=== PATIENT | female | born 1950 | race Caucasian/White ===

== ENCOUNTER → 2020-02-11 | Outpatient (CLI) | payer MEDICARE ==
[~2020-02-11] MED LIST: ASP325T PO; ASP81CT PO; AZIT-21 PO; CALC-656 PO; CARV3.122 PO; CLOP75TA PO; CYCL10TA9 PO; DIGO250T96 PO; DNPZ10T PO; ENAL2.5T PO; FAMO20TA13 PO; FELO5TAB2 PO; FERR-57 PO; FLC1T PO; FOLI1TAB PO; FRSM40T PO; FURO80TA PO; GADOBUTROL 10 MMOL/10 ML (GADAVIST) VIAL IV ONE; GBPN400C PO; GLIP5TAB13 PO; HYDR1TAB PO; INSU100I14 SQ; INSU100I16 SQ; LSNP20T PO; MEMA10TA PO; MGS40T PO; MTP100TCR PO; OMG1KC PO; PNT40TEC PO; POTA10CA43 PO; RAME8T PO; SMV20T PO; TRAM50TA2 PO; WRF2T PO; WRF3T PO
--- NOTE | 2020-02-11 12:20 | Diagnostic Imaging Report ---
CLINICAL INDICATION: Patient with dizziness, headaches and decreased vision. EXAM: MRI of the brain/orbits performed without and with 10 mL of Gadavist IV contrast. Sequences include axial DWI, ADC map, axial T2, axial FLAIR, axial T1, axial gradient echo, coronal T2 thin fat sat, axial T1 thin, coronal T1 thin, axial T2 thin, axial T1 fat-sat thin postcontrast, coronal T1 fat-sat thin postcontrast, right and left sagittal T1 fat-sat postcontrast images of the orbits, axial T1 post IV contrast whole brain, coronal T1 fat-sat post IV contrast whole brain, sagittal T1 post IV contrast whole brain. COMPARISON: None. FINDINGS: There is no evidence of acute cerebral infarct, intracranial hemorrhage, or gross mass effect. There is no abnormal IV contrast enhancement. The brain parenchymal volume appears appropriate for patient's age. There are multiple focal, patchy and mildly confluent areas of high T2 signal white matter changes seen throughout both cerebral hemispheres, likely representing chronic small vessel ischemic disease and leukoaraiosis. There is normal wynn-white matter distinction. There is no significant midline shift or herniation. The [place] vascular structures show no gross abnormality as visualized. The infundibulum is deviated towards the left. There is partial empty sella turcica is noted. There is CSF signal intensity fluid within the right and midportion of the sella which may possibly represent an arachnoid cyst. This area measures roughly 1.1 cm x 1.4 cm in AP by transverse dimensions.. There is no evidence of hydrocephalus. The basal cisterns are unremarkable. The skull and extracranial soft tissue are unremarkable. There is minimal mucosal thickening involving ethmoid sinus. Temporal bones show no significant abnormality. The orbits and globes are unremarkable. There is no abnormal IV contrast enhancement. Optic nerves, optic tracts, and optic chiasm are unremarkable. IMPRESSION: 1: There is no evidence of acute intracranial process. There is no abnormal IV contrast enhancement. 2: The orbits and globes are unremarkable. The visualized portions of optic nerves, optic tracts, and chiasm are unremarkable. 3: Partially empty sella turcica is noted with CSF signal intensity fluid-filled area in the mid and right side of the sella with leftward deviation of the infundibulum. Arachnoid cyst may be considered. There is no encroachment of the region of the optic nerves. 4: There are age-related brain parenchymal changes with chronic small vessel ischemic disease and leukoaraiosis. Dictated by: Dictated on workstation # [id number]
== END ==
LOC: RAD 09:58
PROVIDERS: ATTEND Neurological Surgery
DX: I67.82 Cerebral ischemia (principal); I67.81 Acute cerebrovascular insufficiency; H53.8 Other visual disturbances; G62.9 Polyneuropathy, unspecified
CPT/HCPCS: 70553

== ENCOUNTER 2021-02-09 11:43 | Inpatient (IN) | payer MEDICARE ==
[~2021-02-09] VITALS: Ht 163 cm; Wt 99.3 kg
[~2021-02-09 11:43] MED LIST changes: -GADOBUTROL 10 MMOL/10 ML (GADAVIST) VIAL IV ONE
[2021-02-09] MEDS ORDERED: ONDANSETRON 4 MG/2 ML (SDV) Z0FRAN ONE (12:00)
[2021-02-09] MEDS ORDERED: ONDANSETRON 4 MG/2 ML (SDV) Z0FRAN IVP ONE (12:30)
[2021-02-09] MEDS ORDERED: LACTATED RINGERS 1,000 ML IV ONE (12:30)
[2021-02-09 12:42] LABS: ALBUMIN 3.6 GM/DL (3.2-4.5); POTASSIUM 3.3 MMOL/L (3.6-5.0)
[2021-02-09 12:43] LABS: CALCIUM 8.4 MG/DL (8.5-10.1)
[2021-02-09 12:45] LABS: BASOPHILS % (AUTO) 0 % (0-10); EOSINOPHILS % (AUTO) 0 % (0-10); MEAN CORPUSCULAR HEMOGLOBIN 30 pg (25-34); MEAN PLATELET VOLUME 10.3 fL (9.0-12.2)
[2021-02-09 12:46] LABS: BILIRUBIN,TOTAL 0.6 MG/DL (0.1-1.0); HEMATOCRIT 41 % (35-52); HEMOGLOBIN 13.8 g/dL (11.5-16.0); LYMPHOCYTES # (AUTO) 0.7 10^3/uL (1.0-4.0); LYMPHOCYTES % (AUTO) 16 % (12-44); MEAN CORPUSCULAR HGB CONC 34 g/dL (32-36); MEAN CORPUSCULAR VOLUME 88 fL (80-99); MONOCYTES # (AUTO) 0.2 10^3/uL (0.0-1.0); MONOCYTES % (AUTO) 4 % (0-12); NEUTROPHILS # (AUTO) 3.4 10^3/uL (1.8-7.8); NEUTROPHILS % (AUTO) 80 % (42-75); PLATELET COUNT 121 10^3/uL (130-400); WHITE BLOOD COUNT 4.3 10^3/uL (4.3-11.0)
[2021-02-09 12:48] LABS: CREATININE SERUM 0.72 MG/DL (0.60-1.30)
[2021-02-09 12:52] LABS: SMEAR SCAN COMMENT YES
[2021-02-09 12:53] LABS: FIBRIN DEGRADATION PRODUCTS 1.05 UG/ML (0.00-0.49); PROTHROMBIN TIME PATIENT 13.5 SEC (12.2-14.7)
--- NOTE | 2021-02-09 13:11 | Diagnostic Imaging Report ---
CLINICAL INDICATION: Patient complains of being COVID positive. Patient tested positive yesterday but symptoms started 10 days ago. EXAM: Portable chest x-ray upright view. COMPARISON: Chest x-ray dated 02/15/2011. FINDINGS: There are curvilinear opacities and amorphous airspace opacities involving the left midlung field and bibasilar regions concerning for lung infiltrates. There is no pleural effusion or pneumothorax. Pulmonary vasculature and cardiac silhouette are within normal limits. There are degenerative spurs involving the spine. IMPRESSION: There are bilateral lung infiltrates concerning for pneumonia. Dictated by: Dictated on workstation # [id number]
[2021-02-09] MEDS ORDERED: IOHEXOL 350 MG/ML 100 ML (OMNIPAQUE 350) VIAL IV ONE (14:30)
[2021-02-09] MEDS ORDERED: HOLD METFORMIN - RECEIVED CONTRAST 20 ML VIAL IV SCH (14:30)
[2021-02-09] MEDS ORDERED: NS 100 ML (IVPB) BAG IV ONE (14:30)
[2021-02-09 14:35] LABS: BILIRUBIN,URINE NEGATIVE (NEGATIVE); CLARITY,URINE CLEAR; COLOR,URINE YELLOW; GLUCOSE, URINE (UA) 2+ (NEGATIVE); KETONES,URINE 3+ (NEGATIVE); LEUKOCYTE ESTERASE ,URINE NEGATIVE (NEGATIVE); NITRITE,URINE NEGATIVE (NEGATIVE); PROTEIN,URINE 2+ (NEGATIVE)
[2021-02-09 14:43] LABS: BACTERIA,URINE TRACE /HPF; WBC,URINE 0-2 /HPF
--- NOTE | 2021-02-09 15:04 | Diagnostic Imaging Report ---
PROCEDURE: CT angiography of the chest with contrast. TECHNIQUE: Multiple contiguous axial images were obtained through the chest after uneventful bolus administration of intravenous contrast. 3D reconstructed CTA MIP acquisitions were also performed. Auto Exposure Controls were utilized during the CT exam to meet ALARA standards for radiation dose reduction. INDICATION: COVID patient; nausea, vomiting, and weakness. FINDINGS: There are no pulmonary arterial filling defects. There are no findings of pulmonary arterial embolus. The thoracic aorta is patent, nonaneurysmal, and nonacute. This patient has multifocal bilateral upper greater than lower lobe scattered ground-glass densities in keeping with the provided history of known COVID. In addition, there are some subpleural zones of partial atelectasis. No pathological-appearing thoracic lymph nodes. The aorta is patent and nonaneurysmal. No acute chest wall pathology. The visualized upper abdomen is nonacute. IMPRESSION: Negative for PE; however, extensive multifocal ground-glass infiltrates are most compatible with pulmonary involvement by COVID given the provided history. Dictated by: Dictated on workstation # [id number]
--- NOTE | 2021-02-09 16:49 | ED General ---
General Chief Complaint: COVID19 Suspect/Confirmed Stated Complaint: HYPOVOLEMIA, HYPOXIA, PNEUMONIA DUE TO COVID-19 Nursing Triage Note: PT TO RM 9 BY WHEELCHAIR WITH COMPLAINT OF COVID +. STATES TESTED POSITIVE YESTERDAY, BUT SYMPTOMS STARTED 10 DAYS AGO. N/V, WEAKNESS. Source of Information: Patient, Old Records Exam Limitations: No Limitations History of Present Illness Date Seen by Provider: Feb 09, 2021 Time Seen by Provider: 12:00 Initial Comments This is 71-year-old woman presents to the emergency room with hypoxia after being diagnosed with COVID-19 yesterday. She has been ill for about 10 days. She was going to the drive-through follow-up at [facility] today when she was noted to have hypoxia with 88% on room air. She was directed to the ER. She has not been vaccinated. She also has some risk factors including age, weight, and insulin-dependent type 2 diabetes. She has not yet received any treatments for COVID-19. She has also been struggling with nausea, vomiting, and diarrhea. She feels rather weak. Allergies and Home Medications Allergies Coded Allergies: codeine (Verified Allergy, Unknown, 02/15/11) Patient Home Medication List Home Medication List Reviewed: Yes Aspirin (Aspirin 325 Mg Tab) 325 Mg Tab, 325 MG PO DAILY, (Reported) Entered as Reported by: GEORGE JOE on 02/17/11 1109 Carvedilol (Carvedilol) 3.125 Mg Tablet, 3.125 MG PO BID, (Reported) Entered as Reported by: GEORGE JOE on 02/17/11 1115 Cyclobenzaprine Hcl (Cyclobenzaprine Hcl) 10 Mg Tablet, 1 EACH PO Q8HR PRN Prescribed by: FITO MICHELLE on 03/20/11 1605 Digoxin (Lanoxin 0.25 Mg) 0.25 Mg Tab, 1 EACH PO DAILY, (Reported) Entered as Reported by: TRENT GONZALEZ on 03/20/11 1213 Enalapril Maleate (Enalapril Maleate) 2.5 Mg Tablet, 2.5 MG PO BID, (Reported) Entered as Reported by: GEORGE JOE on 02/17/11 1115 Furosemide (Lasix Tab) 40 Mg Tab, 40 MG PO DAILY, (Reported) Entered as Reported by: GEORGE JOE on 02/17/11 1115 Gabapentin (Neurontin) 400 Mg Cap, 400 MG PO Q4H, (Reported) Entered as Reported by: RUSLAN SADLER on 02/06/11 140 Insulin Aspart (Novolog Pen) 100 Unit/1 Ml Insuln.pen, 15 UNIT SQ TID, (Reported) Entered as Reported by: RUSLAN SADLER on 02/06/11 140 Insulin Detemir (Levemir) 100 Unit/1 Ml Insuln.pen, 28 UNIT SQ HS, (Reported) Entered as Reported by: RUSLAN SADLER on 02/06/11 140 [place] 3 Polyunsat Fatty Acids (Fish Oil) 1,000 Mg Cap, 3,000 MG PO DAILY, (Reported) Entered as Reported by: RUSLAN SADLER on 02/06/11 140 Pantoprazole Sod (Protonix Tab) 40 Mg Tab, 40 MG PO DAILY, (Reported) Entered as Reported by: GEORGE JOE on 02/17/11 111 Potassium Chloride (Potassium Chloride) 10 Meq Capsule.sa, 10 MEQ PO DAILY, (Reported) Entered as Reported by: GEORGE JOE on 02/17/11 111 Tramadol Hcl (Tramadol Hcl) 50 Mg Tablet, 100 MG PO, (Reported) Entered as Reported by: RUSLAN SADLER on 02/06/11 140 Warfarin Sod (Coumadin 3 Mg) 3 Mg Tab, 3 MG PO, (Reported) Entered as Reported by: TRENT GONZALEZ on 03/20/11 1213 Warfarin Sod (Coumadin 2 Mg) 2 Mg Tab, 2 MG PO DAILY@1800, (Reported) Entered as Reported by: TRENT GONZALEZ on 03/20/11 1213 Review of Systems Review of Systems Constitutional: see HPI EENTM: no symptoms reported Respiratory: see HPI Cardiovascular: no symptoms reported Gastrointestinal: see HPI Genitourinary: no symptoms reported : No Musculoskeletal: no symptoms reported Skin: no symptoms reported Psychiatric/Neurological: No Symptoms Reported Hematologic/Lymphatic: No Symptoms Reported Immunological/Allergic: no symptoms reported Past Zxawqtp-Qsljvf-Cmcmoq Hx Patient Social History Tobacco Use?: No Substance use?: No Alcohol Use?: No Past Medical History Surgeries: Yes Cardiac (Heart cath with renal stent placement), Hysterectomy, Vascular Surgery (Right renal artery stent) Respiratory: Yes Pneumonia Cardiac: Yes (Cardiomyopathy with congestive heart failure, cardiac thrombus) High Cholesterol, Hypertension, Peripheral Vascular (Renal artery stenosis) Neurological: Yes Neuropathy : No Reproductive Disorders: Yes Genitourinary: Yes Kidney Stones Gastrointestinal: No Musculoskeletal: No Endocrine: Yes Diabetes, Insulin dep HEENT: No Cancer: No Psychosocial: No Integumentary: No Physical Exam-Suspected Sepsis Physical Exam Vital Signs Vital Signs - First Documented 02/09/21 11:43 Temp 37.8 Pulse 103 Resp 26 Pulse Ox 90 O2 Delivery Room Air Capillary Refill : Less Than 3 Seconds Height, Weight, BMI Height: '" Weight: lbs. oz. kg; 34.00 BMI Method:Stated General Appearance: No Apparent Distress, WD/WN, Obese HEENT: PERRL/EOMI, Normal ENT Inspection, Other (Oropharynx somewhat dry) Neck: Normal Inspection; No JVD Respiratory: Lungs Clear, Normal Breath Sounds, No Accessory Muscle Use, No Respiratory Distress Cardiovascular: Regular Rate, Rhythm, No Edema, No Murmur Gastrointestinal: Normal Bowel Sounds, Non Tender, Soft Extremity: Normal Inspection, No Pedal Edema Neurologic/Psychiatric: Alert, Oriented x3, No Motor/Sensory Deficits, Normal Mood/Affect, data warehouse specialist II-XII Norm as Tested Skin: normal color, warm/dry Focused Exam Lactate Level 02/09/21 11:50: Lactic Acid Level 1.23 Progress/Results/Core Measures Suspected Sepsis SIRS Temperature: Pulse: 103 Respiratory Rate: 26 Laboratory Tests 02/09/21 11:50: White Blood Count 4.3 Blood Pressure / Mean: 02/09/21 11:50: Lactic Acid Level 1.23 Laboratory Tests 02/09/21 11:50: Creatinine 0.72, INR Comment 1.0, Platelet Count 121L, Total Bilirubin 0.6 Results/Orders Lab Results Laboratory Tests Test 02/09/21 11:50 02/09/21 14:27 Range/Units White Blood Count 4.3 4.3-11.0 10^3/uL Red Blood Count 4.63 3.80-5.11 10^6/uL Hemoglobin 13.8 11.5-16.0 g/dL Hematocrit 41 35-52 % Mean Corpuscular Volume 88 80-99 fL Mean Corpuscular Hemoglobin 30 25-34 pg Mean Corpuscular Hemoglobin Concent 34 32-36 g/dL Red Cell Distribution Width 13.0 10.0-14.5 % Platelet Count 121 L 130-400 10^3/uL Mean Platelet Volume 10.3 9.0-12.2 fL Immature Granulocyte % (Auto) 1 % Neutrophils (%) (Auto) 80 H 42-75 % Lymphocytes (%) (Auto) 16 12-44 % Monocytes (%) (Auto) 4 0-12 % Eosinophils (%) (Auto) 0 0-10 % Basophils (%) (Auto) 0 0-10 % Neutrophils # (Auto) 3.4 1.8-7.8 10^3/uL Lymphocytes # (Auto) 0.7 L 1.0-4.0 10^3/uL Monocytes # (Auto) 0.2 0.0-1.0 10^3/uL Eosinophils # (Auto) 0.0 0.0-0.3 10^3/uL Basophils # (Auto) 0.0 0.0-0.1 10^3/uL Immature Granulocyte # (Auto) 0.0 0.0-0.1 10^3/uL Percent Immature Platelet Fraction 4.6 0.0-7.6 % Prothrombin Time 13.5 12.2-14.7 SEC INR Comment 1.0 0.8-1.4 Activated Partial Thromboplast Time 41 H 24-35 SEC D-Dimer 1.05 H 0.00-0.49 UG/ML Sodium Level 138 135-145 MMOL/L Potassium Level 3.3 L 3.6-5.0 MMOL/L Chloride Level 101 98-107 MMOL/L Carbon Dioxide Level 23 21-32 MMOL/L Anion Gap 14 5-14 MMOL/L Blood Urea Nitrogen 13 7-18 MG/DL Creatinine 0.72 0.60-1.30 MG/DL Estimat Glomerular Filtration Rate 80 BUN/Creatinine Ratio 18 Glucose Level 317 H 70-105 MG/DL Lactic Acid Level 1.23 0.50-2.00 MMOL/L Calcium Level 8.4 L 8.5-10.1 MG/DL Corrected Calcium 8.7 8.5-10.1 MG/DL Total Bilirubin 0.6 0.1-1.0 MG/DL Aspartate Amino Transf (AST/SGOT) 89 H 5-34 U/L Alanine Aminotransferase (ALT/SGPT) 48 0-55 U/L Alkaline Phosphatase 68 40-136 U/L C-Reactive Protein High Sensitivity 11.02 H 0.00-0.50 MG/DL Total Protein 7.0 6.4-8.2 GM/DL Albumin 3.6 3.2-4.5 GM/DL Procalcitonin 0.31 H <0.10 NG/ML Smear Scan YES Urine Color YELLOW Urine Clarity CLEAR Urine pH 6.0 5-9 Urine Specific [place] 1.025 H 1.016-1.022 Urine Protein 2+ H NEGATIVE Urine Glucose (UA) 2+ H NEGATIVE Urine Ketones 3+ H NEGATIVE Urine Nitrite NEGATIVE NEGATIVE Urine Bilirubin NEGATIVE NEGATIVE Urine Urobilinogen 0.2 < = 1.0 MG/DL Urine Leukocyte Esterase NEGATIVE NEGATIVE Urine RBC (Auto) NEGATIVE NEGATIVE Urine RBC NONE /HPF Urine WBC 0-2 /HPF Urine Squamous Epithelial Cells 5-10 /HPF Urine Crystals NONE /LPF Urine Bacteria TRACE /HPF Urine Casts NONE /LPF Urine Mucus NEGATIVE /LPF Urine Culture Indicated NO My Orders Orders - ALLY HUBBARD MD Dexamethasone Injection (Decadron Inje (02/09/21 12:00) Ondansetron Injection (Zofran Injectio (02/09/21 12:00) Ondansetron Injection (Zofran Injectio (02/09/21 12:30) Dexamethasone Injection (Decadron Inje (02/09/21 12:30) Fibrin Degradation Products (02/09/21 12:28) Procalcitonin (Pct) (02/09/21 12:28) Hs C Reactive Protein (02/09/21 12:28) Cbc With Automated Diff (02/09/21 12:28) Comprehensive Metabolic Panel (02/09/21 12:28) Blood Culture (02/09/21 12:28) Sputum Culture (02/09/21 12:28) Urinalysis (02/09/21 12:28) Urine Culture (02/09/21 12:28) Protime With Inr (02/09/21 12:28) Partial Thromboplastin Time (02/09/21 12:28) Chest 1 View, Ap/Pa Only (02/09/21 12:28) Ed Iv/Invasive Line Start (02/09/21 12:28) Ed Iv/Invasive Line Start (02/09/21 12:28) Vital Signs Adult Sepsis Patie Q15M (02/09/21 12:28) O2 (02/09/21 12:28) Remove Rings In Anticipation O (02/09/21 12:28) Lactic Acid Analyzer (02/09/21 12:28) Lactated Ringers (Lr 1000 Ml Iv Solution (02/09/21 12:30) Ct Angio Chest W (02/09/21 14:06) Iohexol Injection (Omnipaque 350 Mg/Ml 1 (02/09/21 14:30) Received Contrast (Hold Metformin- Contr (02/09/21 14:30) Ns (Ivpb) (Sodium Chloride 0.9% Ivpb Bag (02/09/21 14:30) Ed Admission (Communication) (02/09/21 16:19) Medications Given in ED Current Medications Medications Dose Ordered Sig/[place] Route Start Time Stop Time Status Last Admin Dose Admin Dexamethasone Sodium Phosphate 10 mg STK-MED ONCE .ROUTE 02/09/21 12:00 02/09/21 12:02 DC 02/09/21 12:04 6 MG Iohexol 100 ml ONCE ONCE IV 02/09/21 14:30 02/09/21 14:31 DC 02/09/21 14:29 77 ML Lactated Ringer's 1,000 ml @ 0 mls/hr Q0M ONCE IV 02/09/21 12:30 02/09/21 12:32 DC 02/09/21 13:27 0 MLS/HR Ondansetron HCl 4 mg STK-MED ONCE .ROUTE 02/09/21 12:00 02/09/21 12:02 DC 02/09/21 12:04 8 MG Sodium Chloride 100 ml ONCE ONCE IV 02/09/21 14:30 02/09/21 14:31 DC 02/09/21 14:29 80 ML Vital Signs/I&O 02/09/21 11:43 Temp 37.8 Pulse 103 Resp 26 B/P (MAP) Pulse Ox 90 O2 Delivery Room Air Capillary Refill : Less Than 3 Seconds Progress Note : Time: 16:50 Progress Note Patient was hypoxic requiring nasal cannula oxygen support. He was treated with IV fluids and dexamethasone. D-dimer was elevated prompting further evaluation with CT angiogram. Infiltrates were noted without pulmonary embolus. Patient is being admitted due to her hypoxia and risk factors including age, being overweight, and insulin requiring diabetes. I discussed CODE STATUS with the patient. She is okay with CPR and cardiac resuscitation but she does not want to be intubated. I explained the intricacies of this request and if she maintains her position. I also asked for clarification on how she uses her insulin. She reports using 20 units of NovoLog and 20 units of Levemir at at bedtime only. Diagnostic Imaging Diagonstic Imaging: Xray Plain Films/CT/US/NM/MRI: chest Comments NAME: KATIUSKA CUELLAR MED REC#: [id number] PT STATUS: REG ER : 1950 PHYSICIAN: ALLY HUBBARD MD ADMIT DATE: 02/09/21/ER Draft Date of Exam:02/09/21 CHEST 1 VIEW, AP/PA ONLY CLINICAL INDICATION: Patient complains of being COVID positive. Patient tested positive yesterday but symptoms started 10 days ago. EXAM: Portable chest x-ray upright view. COMPARISON: Chest x-ray dated 02/15/2011. FINDINGS: There are curvilinear opacities and amorphous airspace opacities involving the left midlung field and bibasilar regions concerning for lung infiltrates. There is no pleural effusion or pneumothorax. Pulmonary vasculature and cardiac silhouette are within normal limits. There are degenerative spurs involving the spine. IMPRESSION: There are bilateral lung infiltrates concerning for pneumonia. Dictated on workstation # [id number] Dict: 02/09/21 1301 Trans: 02/09/21 1310 [id number] Interpreted by: LENNY TAY MD Reviewed: Reviewed by Me Diagonstic Imaging: CT Plain Films/CT/US/NM/MRI: chest Comments NAME: KATIUSKA CUELLAR MED REC#: [id number] PT STATUS: REG ER : 1950 PHYSICIAN: ALLY HUBBARD MD ADMIT DATE: 02/09/21/ER Signed Date of Exam:02/09/21 CT ANGIO CHEST W PROCEDURE: CT angiography of the chest with contrast. TECHNIQUE: Multiple contiguous axial images were obtained through the chest after uneventful bolus administration of intravenous contrast. 3D reconstructed CTA MIP acquisitions were also performed. Auto Exposure Controls were utilized during the CT exam to meet ALARA standards for radiation dose reduction. INDICATION: COVID patient; nausea, vomiting, and weakness. FINDINGS: There are no pulmonary arterial filling defects. There are no findings of pulmonary arterial embolus. The thoracic aorta is patent, nonaneurysmal, and nonacute. This patient has multifocal bilateral upper greater than lower lobe scattered ground-glass densities in keeping with the provided history of known COVID. In addition, there are some subpleural zones of partial atelectasis. No pathological-appearing thoracic lymph nodes. The aorta is patent and nonaneurysmal. No acute chest wall pathology. The visualized upper abdomen is nonacute. IMPRESSION: Negative for PE; however, extensive multifocal ground-glass infiltrates are most compatible with pulmonary involvement by COVID given the provided history. Dictated by: Dictated on workstation # [id number] Dict: 02/09/21 1440 Trans: 02/09/21 1548 [id number] Interpreted by: ABE LIRIANO Electronically signed by: ABE LIRIANO 02/09/21 1548 Reviewed: Reviewed by Dc Departure Communication (Admissions) Time/Spoke to Admitting Phy: 16:15 Dr. Chatman Impression Primary Impression: Pneumonia due to COVID-19 virus Additional Impressions: Hypoxia Hyperglycemia Nausea vomiting and diarrhea Disposition: ADMITTED INPATIENT Condition: Improved Admissions Decision to Admit Reason: Admit from ER (General) Decision to Admit/Date: Feb 09, 2021 Time/Decision to Admit Time: 12:05 Departure-Patient Inst. Referrals: [facility] (PCP/Family) Primary Care Physician ALLY HUBBARD MD Feb 09, 2021 16:49
[2021-02-09] MEDS ORDERED: AZITHROMYCIN INJECTION 500 MG in NS (IVPB) 250 ML IV NR (17:45)
[2021-02-09] MEDS ORDERED: polyethylene glycoL POWDER 17 GM (MIRALAX) PACK PO PRN (17:45)
[2021-02-09] MEDS ORDERED: guaiFENesin/DM (ROBITUSSIN DM) 10 ML UDC PO PRN (17:45)
[2021-02-09] MEDS ORDERED: ANTACID SUSP 30 ML UDC (MYLANTA) PO PRN (17:45)
[2021-02-09] MEDS ORDERED: ACETAMINOPHEN 325 MG TABLET PO PRN (17:45)
[2021-02-09] MEDS ORDERED: ONDANSETRON 4 MG/2 ML (SDV) Z0FRAN IV PRN (17:45)
[2021-02-09] MEDS ORDERED: MELATONIN 3 MG TABLET PO PRN (17:45)
[2021-02-09] MEDS ORDERED: ONDANSETRON 4 MG (ZOFRAN) ORAL DISSOLVE TAB PO PRN (17:45)
[2021-02-09] MEDS ORDERED: ALPRAZolam 0.25 MG (XANAX) TAB PO PRN (17:45)
[2021-02-09] MEDS ORDERED: diphenhydrAMINE 25 MG TAB (BENADRYL) PO PRN (17:45)
[2021-02-09] MEDS: cefTRIAXone 2,000 MG in NS (IVPB) 50 ML IV SCH (18:02)
[2021-02-09] MEDS: ENOXAPARIN 40 MG/0.4 ML (LOVENOX) SYR SC SCH (18:03)
[2021-02-09 18:11] VITALS: BP 163/91
[2021-02-09 19:14] VITALS: BP 163/84
[2021-02-09] MEDS ORDERED: RT-ALBUTEROL HFA 8.5 GM INHALER IH PRN (19:45)
[2021-02-09] MEDS: RT-ALBUTEROL HFA 8.5 GM INHALER IH SCH (21:37)
[2021-02-09] MEDS: inSUlin ASPART (NovoLOG) 1 UNIT/0.01 ML (CHARGE PER UNIT) SC SCH (21:41)
[2021-02-09 23:34] VITALS: BP 160/75
[2021-02-10] MEDS: RT-ALBUTEROL HFA 8.5 GM INHALER IH SCH ×4 (02:47→23:26)
[2021-02-10 04:56] VITALS: BP 160/87
[2021-02-10] MEDS: dexAMETHasone 6 MG TAB (DECADRON) PO SCH (05:47)
[2021-02-10] MEDS: inSUlin ASPART (NovoLOG) 1 UNIT/0.01 ML (CHARGE PER UNIT) SC SCH ×6 (05:48→20:25)
[2021-02-10 06:32] LABS: BASOPHILS % (AUTO) 0 % (0-10); EOSINOPHILS % (AUTO) 0 % (0-10); HEMATOCRIT 38 % (35-52); LYMPHOCYTES # (AUTO) 0.6 10^3/uL (1.0-4.0); LYMPHOCYTES % (AUTO) 19 % (12-44); MEAN CORPUSCULAR HEMOGLOBIN 29 pg (25-34); MEAN CORPUSCULAR HGB CONC 34 g/dL (32-36); MEAN CORPUSCULAR VOLUME 86 fL (80-99); MONOCYTES # (AUTO) 0.3 10^3/uL (0.0-1.0); MONOCYTES % (AUTO) 9 % (0-12); NEUTROPHILS # (AUTO) 2.4 10^3/uL (1.8-7.8); NEUTROPHILS % (AUTO) 72 % (42-75); PLATELET COUNT 151 10^3/uL (130-400); WHITE BLOOD COUNT 3.3 10^3/uL (4.3-11.0)
[2021-02-10 06:55] LABS: ALBUMIN 3.4 GM/DL (3.2-4.5); BILIRUBIN,TOTAL 0.5 MG/DL (0.1-1.0); CALCIUM 8.6 MG/DL (8.5-10.1); CREATININE SERUM 0.73 MG/DL (0.60-1.30); MAGNESIUM 2.1 MG/DL (1.6-2.4); POTASSIUM 3.2 MMOL/L (3.6-5.0); TOTAL PROTEIN 6.8 GM/DL (6.4-8.2)
[2021-02-10] MEDS ORDERED: inSUlin ASPART (NovoLOG) 1 UNIT/0.01 ML (CHARGE PER UNIT) SC SCH (07:00)
[2021-02-10] MEDS: MAGNESIUM 1 GM/100 ML IVPB 100 ML IV SCH (07:00)
[2021-02-10] MEDS: POTASSIUM CL 10MEQ/50ML IVPB 50 ML IV SCH (07:00)
[2021-02-10] MEDS: KCL 20 MEQ TAB (K-DUR) PO SCH (07:03)
[2021-02-10] MEDS ORDERED: KCL 20 MEQ TAB (K-DUR) PO NR ×2 (07:15→09:30)
[2021-02-10 08:00] VITALS: BP 188/93
[2021-02-10] MEDS: AZITHROMYCIN 250 MG TAB (ZITHROMAX) PO SCH (08:24)
[2021-02-10 13:00] VITALS: BP 178/87
[2021-02-10] MEDS ORDERED: INSU100I10 SQ (15:13)
[2021-02-10] MEDS ORDERED: INSU100I14 SQ (15:13)
[2021-02-10 15:39] VITALS: BP 132/74
[2021-02-10] MEDS: cefTRIAXone 2,000 MG in NS (IVPB) 50 ML IV SCH (17:16)
[2021-02-10] MEDS: ENOXAPARIN 40 MG/0.4 ML (LOVENOX) SYR SC SCH (17:16)
--- NOTE | 2021-02-10 18:36 | History & Physical-Hospitalist ---
History of Present Illness HPI/Chief Complaint Soledad Ibrahim is a 71 year old female with insulin dependent diabetes mellitus who presented with shortness of breath. She has been sick for about 10 days. She was diagnosed with COVID-19. She has been having cough. She denies fevers and chills. Her appetite has not been good. She has been having nausea and vomiting. She is not vaccinated. Source: patient Exam Limitations: no limitations Date Seen 02/10/21 Time Seen by a Provider: 10:50 Attending Physician Jasmyn Phillips MD PCP [facility] [place] Referring Physician Date of Admission Feb 09, 2021 at 16:20 Home Medications & Allergies Home Medications Reviewed patient Home Medication Reconciliation performed by pharmacy medication reconciliations furniture technician and/or nursing. Patients Allergies have been reviewed. Allergies Allergies Coded Allergies codeine (Verified Allergy, Unknown, 02/15/11) Past Resywbb-Hgykiw-Iuatrd Hx Patient Social History Tobacco Use?: No Smoking Status: Never a Smoker Use of E-Cig and/or Vaping dev: No Substance use?: No Alcohol Use?: No Pt feels they are or have been: No Immunizations Up To Date First/Initial COVID19 Vaccinat: NOT VACCINATED Tetanus Booster (TDap): Unknown Current Status status: No Advance Directives: Yes Advance Directive Location: Home Communicates: Verbally Primary Language: Swiss Preferred Spoken Language: Swiss Is interpretation needed?: No Sensory deficits: Vision impairment Implanted or Applied Medical D: Stents Past Medical History Surgeries: Cardiac (Heart cath with renal stent placement), Hysterectomy, Vascular Surgery (Right renal artery stent) Pneumonia High Cholesterol, Hypertension, Peripheral Vascular (Renal artery stenosis) Neuropathy Kidney Stones Diabetes, Insulin dep Family Medical History No Pertinent Family Hx Review of Systems Constitutional: no symptoms reported EENTM: no symptoms reported Respiratory: cough, short of breath Cardiovascular: no symptoms reported Gastrointestinal: no symptoms reported Genitourinary: no symptoms reported Musculoskeletal: no symptoms reported Skin: no symptoms reported Psychiatric/Neurological: No Symptoms Reported Physical Exam Physical Exam Vital Signs Vital Signs - First Documented 02/09/21 02/09/21 02/09/21 11:43 11:50 17:32 Temp 37.8 Pulse 103 Resp 26 B/P (MAP) 173/96 Pulse Ox 90 O2 Delivery Room Air O2 Flow Rate 2.00 Capillary Refill : Less Than 3 Seconds Height, Weight, BMI Height: '" Weight: lbs. oz. kg; 37.37 BMI Method:Stated General Appearance: No Apparent Distress, Obese HEENT: PERRL/EOMI, Pharynx Normal Neck: Normal Inspection, Supple Respiratory: Lungs Clear, Normal Breath Sounds, No Respiratory Distress Cardiovascular: Regular Rate, Rhythm, No Edema, No Murmur Gastrointestinal: Normal Bowel Sounds, Non Tender, Soft Extremity: Normal Inspection, Non Tender, No Pedal Edema Neurologic/Psychiatric: Alert, Oriented x3, No Motor/Sensory Deficits, Normal Mood/Affect Skin: Normal Color, Warm/Dry Results Results/Procedures Labs Laboratory Tests 02/09/21 11:50 02/10/21 05:45 Patient resulted labs reviewed. Imaging: Reviewed Imaging Report Assessment/Plan Admission Diagnosis Acute respiratory failure due to COVID-19 Admission Status: Inpatient Order (span 2 midnights) Reason for Inpatient Admission: Respiratory failure Assessment and Plan Acute respiratory failure due to COVID-19 Lymphpenia associated with COVID-19 Secondary bacterial pneumonia Decadron Supplemental oxygen Home oxygen evaluation Rocephin and Azithromycin T2DM Steroid induced hyperglycemia Levemir Novolog with meals Sliding scale insulin Obesity Clinically significant, no acute management needs DVT prophylaxis: Lovenox Diagnosis/Problems Diagnosis/Problems (1) Acute respiratory failure due to COVID-19 Status: Acute (2) Pneumonia due to COVID-19 virus Status: Acute (3) Lymphopenia associated with COVID-19 Status: Acute (4) T2DM (type 2 diabetes mellitus) Status: Chronic Qualifiers: Diabetes mellitus [facility] insulin use: with petroleum terminal plant operator use Diabetes mellitus complication status: with hyperglycemia Qualified Codes: E11.65 - Type 2 diabetes mellitus with hyperglycemia; Z79.4 - intermediate card tender (current) use of insulin (5) Steroid-induced hyperglycemia Status: Acute (6) Obesity Status: Chronic (7) Hypokalemia Status: Acute JASMYN PHILLIPS MD Feb 10, 2021 18:36
[2021-02-10 20:05] VITALS: BP 151/84
[2021-02-11] VITALS: BP 137/71
[2021-02-11] MEDS: RT-ALBUTEROL HFA 8.5 GM INHALER IH SCH (02:38)
[2021-02-11 04:00] VITALS: BP 159/81
[2021-02-11 05:58] LABS: BASOPHILS % (AUTO) 0 % (0-10); EOSINOPHILS % (AUTO) 0 % (0-10); HEMATOCRIT 35 % (35-52); LYMPHOCYTES # (AUTO) 0.7 10^3/uL (1.0-4.0); LYMPHOCYTES % (AUTO) 14 % (12-44); MEAN CORPUSCULAR HEMOGLOBIN 30 pg (25-34); MEAN CORPUSCULAR HGB CONC 34 g/dL (32-36); MEAN CORPUSCULAR VOLUME 87 fL (80-99); MEAN PLATELET VOLUME 9.6 fL (9.0-12.2); MONOCYTES # (AUTO) 0.5 10^3/uL (0.0-1.0); MONOCYTES % (AUTO) 10 % (0-12); NEUTROPHILS # (AUTO) 3.8 10^3/uL (1.8-7.8); NEUTROPHILS % (AUTO) 76 % (42-75); PLATELET COUNT 167 10^3/uL (130-400)
[2021-02-11 06:31] LABS: ALBUMIN 3.3 GM/DL (3.2-4.5); BILIRUBIN,TOTAL 0.6 MG/DL (0.1-1.0); CALCIUM 8.8 MG/DL (8.5-10.1); CREATININE SERUM 0.62 MG/DL (0.60-1.30); MAGNESIUM 2.1 MG/DL (1.6-2.4); POTASSIUM 3.7 MMOL/L (3.6-5.0); TOTAL PROTEIN 6.4 GM/DL (6.4-8.2)
[2021-02-11] MEDS: KCL 20 MEQ TAB (K-DUR) PO SCH (06:47)
[2021-02-11] MEDS: MAGNESIUM 1 GM/100 ML IVPB 100 ML IV SCH (06:47)
[2021-02-11] MEDS: POTASSIUM CL 10MEQ/50ML IVPB 50 ML IV SCH (06:47)
[2021-02-11] MEDS ORDERED: inSUlin ASPART (NovoLOG) 1 UNIT/0.01 ML (CHARGE PER UNIT) SC SCH (07:00)
[2021-02-11] MEDS: inSUlin ASPART (NovoLOG) 1 UNIT/0.01 ML (CHARGE PER UNIT) SC SCH (07:03)
[2021-02-11] MEDS: dexAMETHasone 6 MG TAB (DECADRON) PO SCH (07:03)
[2021-02-11 08:00] VITALS: BP 160/79
[2021-02-11] MEDS: AZITHROMYCIN 250 MG TAB (ZITHROMAX) PO SCH (08:40)
[2021-02-11 13:35] VITALS: BP 160/79
== END 2021-02-11 13:35 | disposition home or self-care (01) | DRG 177 ==
LOC: EDUNIT# 11:43 → ER 11:44 → OBSVTOIN 16:20 → 4TH 16:20
PROVIDERS: ADMIT Internal Medicine; ATTEND Internal Medicine
DX: U07.1 COVID-19 (principal); J96.01 Acute respiratory failure with hypoxia; J15.9 Unspecified bacterial pneumonia; E11.65 Type 2 diabetes mellitus with hyperglycemia; T38.0X5A Adverse effect of glucocorticoids and synthetic analogues, initial encounter; E66.9 Obesity, unspecified; D72.810 Lymphocytopenia; E87.6 Hypokalemia; E78.00 Pure hypercholesterolemia, unspecified; I10 Essential (primary) hypertension; E11.51 Type 2 diabetes mellitus with diabetic peripheral angiopathy without gangrene; E11.40 Type 2 diabetes mellitus with diabetic neuropathy, unspecified; Z79.82 Long term (current) use of aspirin; Z79.4 Long term (current) use of insulin; Z79.01 Long term (current) use of anticoagulants
CPT/HCPCS: 36415; 71045; 71275; 80053; 81000; 82947; 83036; 83605; 83735; 84145; 85025; 85379; 85610; 85730; 86141; 87040; 87088; 94640; 94760; 94761; G0378

== ENCOUNTER → 2021-04-25 | Outpatient (CLI) | payer MEDICARE ==
[~2021-04-25] MED LIST changes: +CATHETER FLUSH 10 ML SYR IV PRN; +DIATRIZOATE MEGLUM/SODIUM 37% 120 ML (GASTROGRAFIN) PO ONE; +HOLD METFORMIN - RECEIVED CONTRAST 20 ML VIAL IV SCH; +INSU100I10 SQ; +IOHEXOL 350 MG/ML 100 ML (OMNIPAQUE 350) VIAL IV ONE; +NS 100 ML (IVPB) BAG IV ONE
[2021-04-25 07:36] LABS: CREATININE SERUM 0.63 MG/DL (0.60-1.30)
--- NOTE | 2021-04-25 08:56 | Diagnostic Imaging Report ---
PROCEDURE: CT abdomen and pelvis with contrast. TECHNIQUE: Multiple contiguous axial images were obtained through the abdomen and pelvis after administration of intravenous contrast. Auto Exposure Controls were utilized during the CT exam to meet ALARA standards for radiation dose reduction. All CT scans use one or more of the following dose optimizing techniques: automated exposure control, MA and/or KvP adjustment based on patient size and exam type or iterative reconstruction. INDICATION: Left lower quadrant pelvic mass effect. TECHNIQUE: Rectal and intravenous contrast were administered CT abdomen pelvis performed. Comparison limited overlapped sections obtained of the upper abdomen during the chest CT 03/12/2020. FINDINGS: The uterus is heterogeneous and multinodular presumed fibroid. It is not substantially enlarged. There is trace pelvic free fluid of the cul-de-sac without complexity. No acute or suspicious adnexal lesion. No findings of ovarian mass. Rectal contrast refluxes to the level of the mid to proximal transverse colon without a discrete transition zone. There is a large amount of colonic stool throughout the large bowel lumen but no focal impaction or obstruction. There is no pneumatosis. There is no free air. There is no vascular or rectal contrast extravasation. The gallbladder surgically absent. There is no pathological distention of the biliary ducts. Pancreas unremarkable. Spleen and adrenals negative. The kidneys are unobstructed and show a simple benign cyst in the lower pole of the right. There are no findings of appendicitis or diverticulitis. The urinary bladder unremarkable. There are degenerative changes to the bony structures with no acute osseous pathology. The lung bases nonacute. IMPRESSION: 1. Fibroid uterus and trace simple pelvic free fluid with features of colonic constipation but no focal impaction or obstruction. 2. No lymphadenopathy, acute pathology or suspicious mass found. 3. Benign renal cyst, previous cholecystectomy without complication. Dictated by: Dictated on workstation # [id number]
== END ==
LOC: RAD 07:45
PROVIDERS: ATTEND Nurse Practitioner
DX: D25.9 Leiomyoma of uterus, unspecified (principal); N28.1 Cyst of kidney, acquired
CPT/HCPCS: 36415; 74177; 82565; 84520

== ENCOUNTER → 2021-05-30 | Outpatient (CLI) | payer MEDICARE ==
[~2021-05-30] MED LIST changes: -CATHETER FLUSH 10 ML SYR IV PRN; -DIATRIZOATE MEGLUM/SODIUM 37% 120 ML (GASTROGRAFIN) PO ONE; -HOLD METFORMIN - RECEIVED CONTRAST 20 ML VIAL IV SCH; -IOHEXOL 350 MG/ML 100 ML (OMNIPAQUE 350) VIAL IV ONE; -NS 100 ML (IVPB) BAG IV ONE
--- NOTE | 2021-05-30 13:37 | Diagnostic Imaging Report ---
PROCEDURE: US Venous Lower Ext Antonio. INDICATION: CARDIOMYOPATHY, LOWER EXTREMITY EDEMA TECHNIQUE: Multiple real-time grayscale images were obtained over the lower extremities in various projections, bilaterally. Additional duplex Doppler and color Doppler images were also obtained. CORRELATION STUDY: None FINDINGS: Color and grayscale sonographic images demonstrate no intraluminal defect within the visualized portion of the common femoral, superficial femoral and/or popliteal veins to suggest thrombus formation. These vessels demonstrate normal response to compression and augmentation. No soft tissue fluid collection. IMPRESSION: 1. Negative for deep venous thrombosis of either leg. Dictated by: Dictated on workstation # [id number]
== END ==
LOC: CARD 09:00
PROVIDERS: ATTEND Internal Medicine Cardiovascular Disease
DX: I35.1 Nonrheumatic aortic (valve) insufficiency (principal); I51.7 Cardiomegaly; I42.9 Cardiomyopathy, unspecified; R60.0 Localized edema
CPT/HCPCS: 93306; 93970

== ENCOUNTER 2022-06-01 05:39 | Outpatient (CLI) | payer MEDICARE ==
[~2022-06-01] VITALS: Ht 162.6 cm; Wt 97.7 kg
== END 2022-06-02 11:00 | disposition home or self-care (01) ==
LOC: PREOP 05:39
PROVIDERS: ATTEND Specialist
DX: Z01.818 Encounter for other preprocedural examination (principal)

== ENCOUNTER 2022-06-09 10:00 | Day surgery (SDC) | payer MEDICARE ==
[~2022-06-09] VITALS: Ht 162.6 cm; Wt 97.7 kg
[2022-06-09] MEDS ORDERED: POVIDONE (BETADINE) OPHTH SOLN 5% 30 ML OP ONE (10:15)
[2022-06-09] MEDS ORDERED: TIMOLOL 0.5% (CATARACTS) 0.3 ML BTL OU PRN (10:15)
[2022-06-09] MEDS ORDERED: MOXIFLOXACIN OPHTH SOLN 5 MG/ML 0.3 ML SYRINGE OP ONE (10:15)
[2022-06-09] MEDS: TETRACAINE 0.5% OPHTH SOLN 4 ML BTL (SINGLE DOSE ONLY) OU PRN ×4 (10:19→10:39)
[2022-06-09 10:24] VITALS: BP 194/98
[2022-06-09] MEDS: TROPICAMIDE 1% OPH SOLN (MYDRIACYL) 15 ML BTL OP SCH ×3 (10:30→10:40)
[2022-06-09] MEDS: PHENYLEPHRINE 10% OPHTH (NEO-SYN) 5 ML BTL OU SCH ×3 (10:30→10:40)
[2022-06-09] MEDS ORDERED: MIDAZOLAM 2 MG/2 ML (VERSED) VIAL ONE (10:40)
[2022-06-09] MEDS ORDERED: hydrALAZINE (APESOLINE) 20 MG/ML VIAL ONE (11:15)
--- NOTE | 2022-06-09 11:32 | Ophthalmologist Pre-Op Note ---
Pre-Operative Progress Note H&P Reviewed The H&P was reviewed, patient examined and no changes noted. Date H&P Reviewed: Jun 09, 2022 Time H&P Reviewed: 11:11 Pre-Op Dx Cataract, Right Eye DARYN WHITNEY MD Jun 09, 2022 11:32
--- NOTE | 2022-06-09 11:32 | Ophthalmology Operative Report ---
Cataract removal/placement IOL PREOPERATIVE DIAGNOSIS: Cataract Right Eye POSTOPERATIVE DIAGNOSIS: Cataract Right Eye PROCEDURE: Cataract removal and placement of posterior chamber implant, right eye SURGEON: Osmany Whitney ANESTHESIA: Topical with sedation COMPLICATIONS: None ESTIMATED BLOOD LOSS: Minimal DESCRIPTION OF PROCEDURE: After proper informed consent was obtained, the patient, a 72 female, was taken to the Operating Room and the right eye was anesthetized with tetracaine. The right eye was then prepped and draped in the usual manner. A wire lid speculum was placed. A paracentesis was made at the left hand position. Preservative free lidocaine was injected into the anterior chamber followed by viscoelastic. A clear corneal incision was made in the temporal position. A capsulorrhexis was preformed and the central nuclear and cortical material were removed. The posterior capsule was polished and Pepe 22.5 AU00T0 IOL was placed into the capsular bag. The residual viscoelastic was aspirated and balanced saline solution was injected into the anterior chamber. Moxifloxacin was injected into the anterior chamber. The wound was checked and found to be water tight. The patient tolerated the procedure well without complications. OSMANY WHITNEY MD Jun 09, 2022 11:32
[2022-06-09 11:38] VITALS: BP 192/101
[2022-06-09] MEDS ORDERED: acetaZOLAMIDE ER 500 MG CAP (DIAMOX SEQUELS) PO ONE (12:30)
--- NOTE | 2022-06-09 13:09 | Anesthesia-General Post-Op ---
MAC Patient Condition Mental Status/LOC: Same as Preop Cardiovascular: Satisfactory Nausea/Vomiting: Absent Respiratory: Satisfactory Pain: Controlled Complications: Absent Post Op Complications Complications None Follow Up Care/Instructions Patient Instructions None needed. Anesthesiology Discharge Order Discharge Order Patient is doing well, no complaints, stable vital signs, no apparent adverse anesthesia problems. No complications reported per nursing. DANNY LOPES CRNA Jun 09, 2022 13:09
== END 2022-06-09 11:41 | disposition home or self-care (01) ==
LOC: SDC 10:00
PROVIDERS: ATTEND Specialist
DX: H25.9 Unspecified age-related cataract (principal); E11.9 Type 2 diabetes mellitus without complications; Z79.4 Long term (current) use of insulin; Z85.828 Personal history of other malignant neoplasm of skin
CPT/HCPCS: 66984; 82947; V2632

== ENCOUNTER 2022-06-20 05:45 | Outpatient (CLI) | payer MEDICARE | END 2022-06-20 16:57 | disposition home or self-care (01) | LOC: PREOP 05:45 | PROVIDERS: ATTEND Specialist | DX: Z01.818 Encounter for other preprocedural examination (principal) ==

== ENCOUNTER 2022-06-23 10:44 | Day surgery (SDC) | payer MEDICARE ==
[~2022-06-23] VITALS: Ht 162.6 cm; Wt 97.7 kg
[2022-06-23] MEDS ORDERED: MOXIFLOXACIN OPHTH SOLN 5 MG/ML 0.3 ML SYRINGE OP ONE (10:45)
[2022-06-23] MEDS ORDERED: POVIDONE (BETADINE) OPHTH SOLN 5% 30 ML OP ONE (10:45)
[2022-06-23] MEDS ORDERED: TIMOLOL 0.5% (CATARACTS) 0.3 ML BTL OU PRN (10:45)
[2022-06-23] MEDS: TETRACAINE 0.5% OPHTH SOLN 4 ML BTL (SINGLE DOSE ONLY) OU PRN ×4 (10:56→11:14)
[2022-06-23] MEDS: TROPICAMIDE 1% OPH SOLN (MYDRIACYL) 15 ML BTL OP SCH ×3 (11:03→11:14)
[2022-06-23] MEDS: PHENYLEPHRINE 10% OPHTH (NEO-SYN) 5 ML BTL OU SCH ×3 (11:04→11:15)
[2022-06-23 11:06] VITALS: BP 191/95
[2022-06-23] MEDS ORDERED: MIDAZOLAM 2 MG/2 ML (VERSED) VIAL ONE (11:52)
--- NOTE | 2022-06-23 11:54 | Ophthalmologist Pre-Op Note ---
Pre-Operative Progress Note H&P Reviewed The H&P was reviewed, patient examined and no changes noted. Date H&P Reviewed: June 23, 2022 Time H&P Reviewed: 11:54 Pre-Op Dx Cataract, Left Eye DARYN WHITNEY MD June 23, 2022 11:54
--- NOTE | 2022-06-23 12:18 | Ophthalmology Operative Report ---
Cataract removal/placement IOL PREOPERATIVE DIAGNOSIS: Cataract Left Eye POSTOPERATIVE DIAGNOSIS: Cataract Left Eye PROCEDURE: Cataract removal and placement of posterior chamber implant, left eye SURGEON: Osmany Whitney ANESTHESIA: Topical with sedation COMPLICATIONS: None ESTIMATED BLOOD LOSS: Minimal DESCRIPTION OF PROCEDURE: After proper informed consent was obtained, the patient, a 72 female, was taken to the Operating Room and the left eye was anesthetized with tetracaine. The left eye was then prepped and draped in the usual manner. A wire lid speculum was placed. A paracentesis was made at the left hand position. Preservative free lidocaine was injected into the anterior chamber followed by viscoelastic. A clear corneal incision was made in the temporal position. A capsulorrhexis was preformed and the central nuclear and cortical material were removed. The posterior capsule was polished and an Pepe 22.0 AU00T0 was placed into the capsular bag. The residual viscoelastic was aspirated and balanced saline solution was injected into the anterior chamber. Moxifloxacin was injected into the anterior chamber. The wound was checked and found to be water tight. The patient tolerated the procedure well without complications. OSMANY WHITNEY MD June 23, 2022 12:18
[2022-06-23 12:28] VITALS: BP 183/93
[2022-06-23] MEDS ORDERED: acetaZOLAMIDE ER 500 MG CAP (DIAMOX SEQUELS) PO ONE (12:30)
--- NOTE | 2022-06-23 13:12 | Anesthesia-General Post-Op ---
MAC Patient Condition Mental Status/LOC: Same as Preop Cardiovascular: Satisfactory Nausea/Vomiting: Absent Respiratory: Satisfactory Pain: Controlled Complications: Absent Post Op Complications Complications None Follow Up Care/Instructions Patient Instructions None needed. Anesthesiology Discharge Order Discharge Order Patient is doing well, no complaints, stable vital signs, no apparent adverse anesthesia problems. No complications reported per nursing. DANNY LOPES CRNA June 23, 2022 13:12
== END 2022-06-23 12:35 | disposition home or self-care (01) ==
LOC: SDC 10:44
PROVIDERS: ATTEND Specialist
DX: E11.36 Type 2 diabetes mellitus with diabetic cataract (principal); H25.9 Unspecified age-related cataract; Z79.4 Long term (current) use of insulin; Z85.828 Personal history of other malignant neoplasm of skin; Z85.820 Personal history of malignant melanoma of skin
CPT/HCPCS: 66984; 82947; V2632